=== PATIENT | male | born 1945 | race Caucasian/White ===

== ENCOUNTER 2017-03-12 08:21 | Emergency (ER) | payer MEDICARE, OTHER ==
--- OUTSIDE RECORDS SUMMARY | 2017-03-12 08:49 | XMS REPORT | Summary of Care ---
:1945 Author Organization [facility] Address [address] [place] [id number]- Care Team Providers Name Role Phone Reji Brown Primary Care Physician Encounter Date(s): 11/16/16 - 11/16/[address] [address]- [facility] Discharge Disposition: 01 Discharged to Home or Self Care Attending Physician: Hernandez Crawford III, DO Admitting Physician: Hernandez Crawford III, DO Vital Signs No data available for this section Problem List Condition Effective Dates Status Health Status Informant Allergic rhinitis(Confirmed) Active BPH(Confirmed) Active Cholesterol(Confirmed) Active Chronic kidney disease (CKD), stage Active III (moderate)(Confirmed) Concussion(Confirmed) Active Disc degeneration(Confirmed) Active ED (erectile dysfunction) of Active non-organic origin(Confirmed) Epididymitis(Confirmed) Active Headache(Confirmed) Active Hydrocele(Confirmed) Active Hyperkalemia(Confirmed) Active Hypertension(Confirmed) Active Hypertriglyceridemia(Confirmed) Active Low back pain(Confirmed) Active Post concussion syndrome(Confirmed) Active PSA - Prostate specific Active antigen(Confirmed) Vitamin D deficiency(Confirmed) Active Allergies, Adverse Reactions, Alerts Substance Reaction Severity Status Oranges hives Active penicillin Unknown Active Medications Aspir 81 81 mg, Oral, Daily, 0 Refill(s), Start Date: 04/29/15 15:31:00 CDT Start Date: 04/29/15 Status: Orderedcetirizine 10 mg oral capsule 1 cap(s), Oral, Daily, PRN for allergy symptoms, # 40 cap(s), 0 Refill(s), Start Date: 03/11/15 13:31:00 CDT Start Date: 03/11/15 Status: OrderedCo Q-10 100 mg oral capsule 2 cap(s), Oral, Daily, 0 Refill(s), Start Date: 03/11/15 13:29:00 CDT Start Date: 03/11/15 Status: Orderedfenofibrate 160 mg oral tablet 1 tab(s), Oral, Daily, # 30 tab(s), 0 Refill(s), Start Date: 03/11/15 13:31:00 CDT Start Date: 03/11/15 Status: Orderedhydrochlorothiazide 12.5 mg oral tablet 1 tab(s), Oral, Daily, # 90 tab(s), 3 Refill(s), Start Date: 01/05/16 7:44:09 CDT, Pharmacy: [place], [place] Start Date: 01/05/16 Status: Orderedhydrochlorothiazide 12.5 mg oral tablet 1 tab(s), Oral, Daily, # 30 tab(s), 6 Refill(s), Start Date: 10/25/15 8:37:34 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, 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: [place], [place] Start Date: 10/25/15 Stop Date: 01/05/16 Status: Completedhydrochlorothiazide 12.5 mg oral tablet 1 tab(s), Oral, Daily, # 30 tab(s), 3 Refill(s), Start Date: 03/29/15 11:49:00 CDT, Pharmacy: [place], [place] Start Date: 03/29/15 Stop Date: 10/25/15 Status: Completedibuprofen 400 mg oral tablet 1 tab(s), Oral, BID, 0 Refill(s), Start Date: 03/29/15 11:14:00 CDT Start Date: 03/29/15 Stop Date: 03/29/15 Status: Discontinuedlisinopril 10 mg oral tablet 1 tab(s), Oral, Daily, # 90 tab(s), 2 Refill(s), Start Date: 05/18/16 14:14:00 CDT, Pharmacy: [place], [place] Start Date: 05/18/16 Status: Orderedlisinopril 20 mg oral tablet 1 tab(s), Oral, Daily, # 30 tab(s), 0 Refill(s), Start Date: 03/11/15 13:29:00 CDT Start Date: 03/11/15 Stop Date: 05/18/16 Status: Discontinuedmontelukast 10 mg oral tablet 0 Refill(s), Start Date: 05/18/16 8:49:00 CDT Start Date: 05/18/16 Status: Orderedmultivitamin 1 tab(s), Oral, Daily, 0 Refill(s), Start Date: 03/11/15 13:28:00 CDT Start Date: 03/11/15 Stop Date: 04/29/15 Status: Completednabumetone 750 mg oral tablet 2 tab(s), Oral, Daily, # 60 tab(s), 0 Refill(s), Start Date: 03/11/15 13:32:00 CDT Start Date: 03/11/15 Stop Date: 03/29/15 Status: Discontinuedondansetron 4 mg, As Indicated, 0 Refill(s), Start Date: 03/11/15 13:31:00 CDT Start Date: 03/11/15 Stop Date: 04/29/15 Status: Completedranitidine 150 mg oral tablet 0 Refill(s), Start Date: 05/18/16 8:48:00 CDT Start Date: 05/18/16 Status: Orderedsodium polystyrene sulfonate 15 g/60 mL oral and rectal suspension 30 gm, Oral, ONETIME, # 120 mL, 0 Refill(s), Start Date: 05/18/16 14:15:00 CDT, Pharmacy: [facility] Start Date: 05/18/16 Stop Date: 11/16/16 Status: CompletedTylenol 325 mg, Oral, QID, 0 Refill(s), Start Date: 05/18/16 14:00:00 CDT Start Date: 05/18/16 Status: OrderedVentolin HFA 90 mcg/inh inhalation aerosol 1 puff(s), Inhale, q6hr, PRN for wheezing, # 8 gm, 0 Refill(s), Start Date: 9:53:00 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 Start Date: 11/16/16 Status: OrderedViagra 100 mg oral tablet 1 tab(s), Oral, Daily, 1 hour before sexual activity, # 10 tab(s), 0 Refill(s), Start Date: 03/11/15 13:28:00 CDT Special Instructions: 1 hour before sexual activity Start Date: 03/11/15 Status: OrderedXanax 0.25 mg oral tablet 1 tab(s), Oral, TID, PRN for anxiety, 0 Refill(s), Start Date: 03/11/15 13:30: 00 CDT Start Date: 03/11/15 Stop Date: 04/29/15 Status: CompletedZostavax subcutaneous injection 1 EA, Subcutaneous, ONETIME, # 1 EA, 0 Refill(s), Start Date: 03/11/15 13:33:00 CDT Start Date: 03/11/15 Stop Date: 11/16/16 Status: Completed Results Patient Viewable Results Most recent to oldest [Reference Range]: 1 Sodium Lvl [135-144 mEq/L] 140 mEq/L (11/16/16 7:44 AM) Potassium Lvl [3.3-4.8 mEq/L] 4.8 mEq/L (11/16/16 7:44 AM) Chloride Lvl [98-107 mEq/L] 105 mEq/L (11/16/16 7:44 AM) Bicarbonate Lvl [22-30 mmol/L] 24 mmol/L (11/16/16 7:44 AM) Anion Gap [10.0-20.0] 15.8 (11/16/16 7:44 AM) Glucose Lvl [70-108 mg/dL] 117 mg/dL *HI* (11/16/16 7:44 AM) BUN [7-21 mg/dL] 34 mg/dL *HI* (11/16/16 7:44 AM) Creatinine Lvl [0.50-1.20 mg/dL] 1.62 mg/dL *HI* (11/16/16 7:44 AM) BUN/Creat Ratio 21.0 *NA* (11/16/16 7:44 AM) eGFR AA [>=60] 51 *LOW* (11/16/16 7:44 AM) eGFR HUEY [>=60] 42 *LOW* (11/16/16 7:44 AM) Calcium Lvl [8.6-10.2 mg/dL] 9.6 mg/dL (11/16/16 7:44 AM) PTH, Intact [14-72 pg/mL] 30 pg/mL (11/16/16 7:44 AM) Vitamin D 25 OH [20-100 ng/mL] 31 ng/mL (11/16/16 7:44 AM) Albumin Lvl [3.5-5.2 g/dL] 4.5 g/dL (11/16/16 7:44 AM) Magnesium Lvl [1.6-2.4 mg/dL] 2.2 mg/dL (11/16/16 7:44 AM) Phosphorus Lvl [2.7-4.5 mg/dL] 2.9 mg/dL (11/16/16 7:44 AM) Microalbumin, Ur <12 mg/L *NA* (11/16/16 7:47 AM) Creatinine, Urine MA 136.5 mg/dL *NA* (11/16/16 7:47 AM) Ur Microalb/Creat Ratio [0-29 mg/g Cr] <9 mg/g Cr (11/16/16 7:47 AM) Estimated Creatinine Clearance 51.67 mL/min (11/16/16 8:29 AM) Immunizations No data available for this section Procedures No data available for this section Social History No data available for this section Assessment and Plan No data available for this section
--- OUTSIDE RECORDS SUMMARY | 2017-03-12 08:50 | XMS REPORT | Summary of Care ---
:1945 Author Organization [facility] Address [address] [place] [address] Care Team Providers Name Role Phone Reji Brown Primary Care Physician Encounter Date(s): 11/16/16 - 11/16/16 [facility], [address] [place], [place] [address] Discharge Diagnosis: BPH Discharge Diagnosis: Chronic kidney disease (CKD), stage III (moderate) Discharge Diagnosis: Hypertension Discharge Disposition: 01 Discharged to Home or Self Care Attending Physician: Hernandez Crawford III, DO Referring Physician: Hernandez Crawford III, DO Vital Signs Most recent to oldest [Reference Range]: 1 Temperature Temporal Artery [36.0-38.0 DegC] 36 DegC (11/16/16 9:48 AM) Peripheral Pulse Rate [60-100 bpm] 72 bpm (11/16/16 9:48 AM) Respiratory Rate [12-20 br/min] 18 br/min (11/16/16 9:48 AM) Blood Pressure [90-130/60-90 mmHg] 123/68mmHg (11/16/16 9:48 AM) Mean Arterial Pressure, Cuff 86 mmHg (11/16/16 9:48 AM) Most recent to oldest [Reference Range]: 1 Height/Length Measured 182.8 cm (11/16/16 9:48 AM) Weight Dosing 107.5 kg (11/16/16 9:48 AM) Weight Measured 107.5 kg (11/16/16 9:48 AM) BSA Measured 2.29 m2 (11/16/16 9:48 AM) Body Mass Index Measured 32.17 kg/m2 (11/16/16 9:48 AM) Problem List Condition Effective Dates Status Health [...] Refill(s), Start Date: 01/05/16 7:44:09 CDT, Pharmacy: [place], [place] Start Date: 01/05/16 Status: Orderedhydrochlorothiazide 12.5 mg oral tablet 1 tab(s), Oral, Daily, # 30 tab(s), 6 Refill(s), Start Date: 10/25/15 8:37:34 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, 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: [place], [place] Start Date: 10/25/15 Stop Date: 01/05/16 Status: Completedhydrochlorothiazide 12.5 mg oral tablet 1 tab(s), Oral, Daily, # 30 tab(s), 3 Refill(s), Start Date: 03/29/15 11:49:00 CDT, Pharmacy: [place], [place] Start Date: 03/29/15 Stop Date: 10/25/15 Status: Completedibuprofen 400 mg oral tablet 1 tab(s), Oral, BID, 0 Refill(s), Start Date: 03/29/15 11:14:00 CDT Start Date: 03/29/15 Stop Date: 03/29/15 Status: Discontinuedlisinopril 10 mg oral tablet 1 tab(s), Oral, Daily, # 90 tab(s), 2 Refill(s), Start Date: 05/18/16 14:14:00 CDT, Pharmacy: [place], [place] Start Date: 05/18/16 Status: Orderedlisinopril 20 [...] Refill(s), Start Date: 05/18/16 14:15:00 CDT, Pharmacy: [facility] Start Date: 05/18/16 Stop Date: 11/16/16 Status: CompletedTylenol 325 mg, Oral, QID, 0 Refill(s), Start Date: 05/18/16 14:00:00 CDT Start Date: 05/18/16 Status: OrderedVentolin HFA 90 mcg/inh inhalation aerosol 1 puff(s), Inhale, q6hr, PRN for wheezing, # 8 gm, 0 Refill(s), Start Date: 9:53:00 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 Start Date: 11/16/16 Status: OrderedViagra 100 [...] 03/11/15 Stop Date: 11/16/16 Status: Completed Results No data available for this section Immunizations No data available for this section Procedures No data available for this section Social History No data available for this section Assessment and Plan No data available for this section
[2017-03-12 08:58] LABS: Hematocrit 46.3 % (42.0-52.0); Hemoglobin 15.8 gm/dL (13.5-18.0); Mean Cell Volume 86.4 fl (78-100); Mean Corpuscular Hemoglobin 29.5 pg (27-31); Mean Corpuscular Hgb Conc 34.1 g/dl (32-36); Mean Platelet Volume 10.2 fl (6.0-9.5); Neutrophil # 4.1 K/mm3 (1.3-6.0); Neutrophil % 68.1 % (42-75.0); Platelet Count 229 K/mm3 (150-450); Red Blood Count 5.36 M/mm3 (4.7-6.0); Red Cell Distribution Width 12.9 % (11.5-14.0); White Blood Count 6.1 K/mm3 (4.0-10.5)
[2017-03-12 09:21] LABS: ALT 41 U/L (19-67); AST 20 U/L (0-48); Albumin * 3.9 gm/dl (3.4-5.0); Alkaline Phosphatase * 49 U/L (50-170); Anion Gap 16.1 mmol/L (6.8-13.8); BUN/Creatinine Ratio 19.9 (9.0-21.6); Bilirubin, Total 0.4 mg/dL (0.0-1.1); Blood Urea Nitrogen 37 mg/dL (6-23); Ca. Corrected For Albumin 9.2 mg/dL (8.4-10.2); Calcium * 9.4 mg/dL (7.9-10.9); Carbon Dioxide 25.2 mmol/L (24-32.6); Chloride 104 mmol/L (97-106); Glucose * 118 mg/dL (70-110); Lipase 182 U/L (73-393); Potassium 4.3 mmol/L (3.4-4.6); Sodium 141 mmol/L (132-142); Total Protein 7.3 gm/dL (6.2-8.2)
[2017-03-12 09:22] LABS: Troponin I Less than 0.017 ng/ml (0.00-0.10)
[2017-03-12 10:46] VITALS: BP 143/73
--- NOTE | 2017-03-12 11:19 | ERNOTE ---
Medical Problem HPI - Narrative Date of Service: 03/12/17 - General Chief Complaint: General Assessment Time Seen by Provider: 03/12/17 08:40 Source: patient Exam Limitations: no limitations - Immun/Allergies/Home Medications Allergies/Adverse Reactions: Allergies Penicillins Allergy (Unknown, Verified 03/12/17 08:35) Home Medications: HOME MEDICATIONS Albuterol Sulfate [Ventolin Hfa] 2 puff IH Q4H PRN 03/12/17 [Last Taken Unknown] Aspirin [Lo-Dose Aspirin EC] 81 mg PO DAILY 03/12/17 [Last Taken Unknown] Cetirizine HCl [Zyrtec] 10 mg PO DAILY 03/12/17 [Last Taken Unknown] Fenofibrate 160 mg PO DAILY 03/12/17 [Last Taken Unknown] Hydrochlorothiazide 12.5 mg PO DAILY 03/12/17 [Last Taken Unknown] Lisinopril [Zestril] 20 mg PO DAILY 03/12/17 [Last Taken Unknown] Montelukast Sodium [Singulair] 10 mg PO DAILY 03/12/17 [Last Taken Unknown] Multivitamin [One Daily Multivitamin] 1 each PO DAILY 03/12/17 [Last Taken Unknown] Ranitidine HCl [Zantac] 150 mg PO BID 03/12/17 [Last Taken Unknown] Sildenafil Citrate [Viagra] 100 mg PO DAILY PRN 03/12/17 [Last Taken Unknown] Ubidecarenone [Co Q-10] 400 mg PO DAILY 03/12/17 [Last Taken Unknown] - History of Present History Narrative: Patient presents to the ED for low central chest pain. This pain has been going on for 1 week. It has been constant. he localizes it to near his zyphoid with his finger. States it hurts to sit forward, touch the area or move. This has been constant pain for 1 week. He denies injury. No exertional pain. no SOB. No diaphoresis. No vomiting. No radiation of the pain. no abdominal pain. Has not seen anyone else for this. Timing: constant Severity: moderate Modifying Factors - (Improves): Present: other - nothing Modifying Factors - (Worsens): Present: movement Review of Systems - Review of Systems Constitutional: Absent: fever Respiratory: Absent: shortness of breath Cardiology: Present: See HPI Gastrointestinal/Abdominal: Absent: abdominal pain Skin: Absent: rash - Patient's Past Medical History Patient History - Medical: No pertinent hx, GERD, Headache, Other Patient History - Cardiac/Respiratory: Asthma, Hypertension, Hyperlipidemia Patient History - Cancer: No Hx of Cancer Patient History - Surgical Procedures: No surgical history Patient History - Other: None - Social History Living Situations: home Psych History: No pertinent hx Alcohol Use: none Drug Use: none Physical Exam - Physical Exam General Appearance: Present: alert, no apparent distress Eye Exam: Normal inspection: bilateral, PERRL: bilateral Ears, Nose, Throat: Present: normal ENT inspection Neck: Present: normal inspection Respiratory: Present: no respiratory distress, normal breath sounds, no accessory muscle use, lungs clear, chest tenderness, other - There is tendenress with palpation just above the xyphoid. He jumps and grimaces with palpation here. This seems to completely reproduces his pain. Cardiovascular/Chest: Present: regular rate, rhythm, normal peripheral pulses Gastrointestinal/Abdominal: Present: normal bowel sounds, nontender, nondistended, soft. Absent: tenderness Back Exam: Present: normal range of motion Extremity Exam: Present: normal inspection. Absent: calf tenderness Neurological Exam: Present: alert, normal mood/affect, no motor/sensory deficits Skin Exam: Absent: skin rash ED Progress - Results and Orders Patient's Lab Results:: I have reviewed the patient's lab results. - Vital Signs Patient's Vital Signs:: I have reviewed the patient's vital signs. Vital Signs: Vital Signs 03/12/17 03/12/17 03/12/17 08:30 08:31 08:41 Temperature 36.3 C L Pulse Rate 61 63 61 Respiratory 12 12 15 Rate Blood Pressure 139/70 139/70 132/68 O2 Sat by Pulse 93 89 L 89 L Oximetry 03/12/17 03/12/17 03/12/17 08:50 09:21 09:31 Temperature Pulse Rate 59 L 57 L 56 L Respiratory 12 13 10 L Rate Blood Pressure 128/69 118/68 119/68 O2 Sat by Pulse 92 88 L 93 Oximetry 03/12/17 03/12/17 03/12/17 09:41 09:52 10:01 Temperature Pulse Rate 54 L 55 L 52 L Respiratory 11 L 12 14 Rate Blood Pressure 128/69 124/69 123/70 O2 Sat by Pulse 89 L 96 91 Oximetry 0603/12/17 03/12/17 10:11 10:21 10:38 Temperature Pulse Rate 52 L 52 L 51 L Respiratory 15 16 11 L Rate Blood Pressure 124/68 126/72 125/71 O2 Sat by Pulse 91 92 93 Oximetry 03/12/17 10:45 Temperature 15 C L Pulse Rate 54 L Respiratory 11 L Rate Blood Pressure 143/73 O2 Sat by Pulse 91 Oximetry - EKG EKG: NSR EKG read: Interp. by me EKG Comments: Sinus bradycardia rate 58. No evidence of acute infarct or ischemic pattern. - X-Ray X-Ray #1 X-Ray: chest Interpretation: Interp. by me X-ray Comments: I reviewed official x-ray report. - CT/Ultrasound CT/Ultrasound Narrative: Constant pain for 1 week, reproducible with palpation of the chest. Neg trop with prolonged, atypical pain, no suggestion of ACS. Clinically nothign to suggest PE or aortic dissection, d-dimer in normal range, no iindication for CT. He feels like going home. I discussed warning signs and reasons to return as well as the nee for close f/u. No clear acute life threats noted. - Progress/Reassessment Chief Complaint: General Assessment Departure - Departure Clinical Impression: Atypical chest pain Disposition: Home self-care Condition: Stable Additional Instructions: Rest. keep your appointment with your primary doctor. Return here for increased pain, trouble breathing, fever or if your condition worsens or changes in any way. Referrals: Reji Brown MD [Primary Care Provider] - 03/15/17 2:30 pm
== END 2017-03-12 11:41 | disposition home or self-care (01) ==
LOC: ER 08:21
DX: R07.89 Other chest pain (principal); K21.9 Gastro-esophageal reflux disease without esophagitis; I10 Essential (primary) hypertension; E78.5 Hyperlipidemia, unspecified

== ENCOUNTER 2017-04-13 11:32 | Day surgery (SDC) | payer MEDICARE, OTHER ==
[~2017-04-13 11:32] MED LIST: RINGER'S SOLUTION,LACTATED 1,000 ML IV PRN
[2017-04-13] MEDS ORDERED: RINGER'S SOLUTION,LACTATED 1,000 ML IV ONE (12:46)
[2017-04-13] MEDS ORDERED: DEXAMETHASONE SOD PHOSPHATE 10 MG/ML VIAL IJ ONE (14:35)
[2017-04-13] MEDS ORDERED: LIDOCAINE HCL 10 ML VIAL IJ ONE (14:35)
--- NOTE | 2017-04-13 14:48 | OR ---
Operative Report - Dictated Report Narrative: Date: 04/13/2017 Preop diagnosis: Epigastric pain and chondritis Postop diagnosis: Gastropathy, gastroparesis, chondritis Procedure: Esophagogastroduodenoscopy with biopsy. 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 Conscious sedation was initiated. A flexible video endoscope was inserted through the mouth, posterior pharynx, esophagus, stomach, and duodenum under direct vision. The duodenum was normal. The scope was withdrawn to the stomach. The pylorus was patulous. A CLOtest and antral biopsy were taken. The was erythema of the antrum. There was a paucity of peristaltic contraction and residual foodstuff was retained in the stomach. Body and fundus were normal. Retroflex view shows no hiatal hernia. Esophagus was unremarkable. The scope was withdrawn. He tolerated this portion of the procedure well. Attention was turned to the tip of the xiphoid which is exquisitely tender to palpation. A sterile trigger point injection with 5cc 1% xylocaine plain and 10mg decadron were injected around the tip of the xiphoid and massaged to spread it into the surrounding tissue. The patient was discharged from the endoscopy suite in stable condition.
[2017-04-13 16:03] VITALS: BP 132/75
== END 2017-04-13 11:33 | disposition home or self-care (01) ==
LOC: AMB 11:32
PROVIDERS: ATTEND Specialist
PROC: 0DB68ZX Excision of Stomach, Via Natural or Artificial Opening Endoscopic, Diagnostic (ICD-10-PCS; principal; 2017-04-13 13:45)
PROC: 3E023BZ Introduction of Anesthetic Agent into Muscle, Percutaneous Approach (ICD-10-PCS; 2017-04-13 13:45)
DX: K29.70 Gastritis, unspecified, without bleeding (principal); K31.84 Gastroparesis; M94.8X8 Other specified disorders of cartilage, other site; K21.9 Gastro-esophageal reflux disease without esophagitis; I10 Essential (primary) hypertension; E78.5 Hyperlipidemia, unspecified; Z87.891 Personal history of nicotine dependence; Z68.32 Body mass index [BMI] 32.0-32.9, adult